=== PATIENT | female | born 1985 | race Caucasian/White ===

== ENCOUNTER 2018-05-18 18:56 | Emergency (ER) | payer OTHER ==
[2018-05-18] MEDS: ACETAMINOPHEN 325 MG TAB PO (20:51)
[2018-05-18] MEDS: LIDOCAINE 2% VISC 15 ML CUP PO (20:51)
== END 2018-05-18 21:30 | disposition home or self-care (01) ==
LOC: FTE 18:56
DX: J06.9 Acute upper respiratory infection, unspecified (principal)
CPT/HCPCS: 81025; 87880; 99283